=== PATIENT | female | born 1960 | race Caucasian/White ===

== ENCOUNTER 2019-01-30 10:24 | Inpatient (IN) ==
[2019-01-30 11:20] LABS: Hematocrit 38.9 % (37.0-47.0); Hemoglobin 12.8 gm/dL (12.5-16.0); Mean Cell Volume 95.3 fl (78-100); Mean Corpuscular Hemoglobin 31.4 pg (27-31); Mean Corpuscular Hgb Conc 32.9 g/dl (32-36); Mean Platelet Volume 10.1 fl (8-12.5); Neutrophil # 5.8 K/mm3 (1.3-6.0); Neutrophil % 68.8 % (42-75.0); Platelet Count 189 K/mm3 (150-450); Red Blood Count 4.08 M/mm3 (4.2-5.4); Red Cell Distribution Width 14.2 % (11.5-14.0); White Blood Count 8.4 K/mm3 (4.0-10.5)
--- NOTE | 2019-01-30 11:23 | ERNOTE ---
Lower Extremity HPI - General Lower Extremities Pain: hip: left Time Seen by Provider: 01/30/19 10:57 Source: patient Exam Limitations: no limitations - Immun/Allergies/Home Medications Immunizations: IMMUNIZATION HX Immunizations Up to Date Yes Allergies/Adverse Reactions: Allergies Allergy/AdvReac Type Severity Reaction Status Date / Time erythromycin base Allergy Anaphylaxis Verified 01/30/19 10:35 prochlorperazine Allergy Muscle Pain Verified 01/30/19 10:35 [From Compazine] Sulfa (Sulfonamide AdvReac Hives Verified 01/30/19 10:35 Antibiotics) Home Medications: HOME MEDICATIONS Fexofenadine HCl [Kylah Allergy] 180 mg PO DAILY 01/30/19 [Last Taken Unknown] clonazePAM [Klonopin] 0.5 mg PO BID PRN 01/30/19 [Last Taken Unknown] - History of Present Illness Narrative: Patient states that she has been having very slowly progressive numbness in both her hands and her feet over the past year or so. She went to get up from a chair and she states her left leg sort of gave out and she landed on her left hip. Knock patient complains of at least moderate pain in the left hip region. She was able to ambulate in however she was using a walker. Occurred: other - 2 days ago Location of Incident: home Method of Injury: Reports: direct blow Reason for Fall: Reports: other - Lower extremity numbness Loss of Consciousness: Reports: no loss of consciousness Modifying Factors - (Improves): Reports: rest Modifying Factors - (Worsens): Reports: movement Other Injuries: Reports: none Review of Systems - Review of Systems Constitutional: Present: See HPI EYE: Present: no symptoms reported ENT: Present: no symptoms reported Respiratory: Present: no symptoms reported Cardiology: Present: no symptoms reported Gastrointestinal/Abdominal: Present: no symptoms reported Genitourinary: Present: no symptoms reported Musculoskeletal: Present: See HPI Skin: Present: no symptoms reported Neurological: Present: See HPI Endocrine: Present: no symptoms reported Hematologic/Lymphatic: Present: no symptoms reported Psych: Present: no symptoms reported Medical History (Updated 01/30/19 @ 11:54 by Devyn Howell DO) Allergic arthritis Asthma Osteoporosis Surgical History: Surgical History (Updated 01/30/19 @ 10:38 by Ani Monroe RN) History of nasal surgery Social History: (Last Updated 01/30/19 @ 10:36 by Ani Monroe RN) Tobacco: Smoking Status: Current every day smoker tobacco type: cigarettes Smoking cigarettes per day: 3 Alcohol: alcohol intake: current Alcohol type: wine alcohol intake frequency: a few times a week Substance Use: substance use type: does not use Physical Exam - Physical Exam General Appearance: Present: wd/wn, alert, moderate distress Head Exam: Present: normal inspection, no evidence of injury Eye Exam: Normal inspection: bilateral, PERRL: bilateral Ears, Nose, Throat: Present: normal ENT inspection, H, normal pharynx Neck: Present: normal inspection, nontender Respiratory: Present: no respiratory distress, normal breath sounds, no accessory muscle use, chest nontender, lungs clear Cardiovascular/Chest: Present: regular rate, rhythm, no murmur, normal peripheral pulses Gastrointestinal/Abdominal: Present: normal bowel sounds, nontender, nondistended, soft, no organomegaly Rectal Exam: Present: deferred Pelvic Exam: Present: deferred Back Exam: Present: normal inspection, normal range of motion Extremity Exam: Present: no edema, decreased range of motion, other - Palpable tenderness over the left hip area Neurological Exam: Present: alert, oriented, normal mood/affect, other - Both hands and feet paresthesia Skin Exam: Present: normal color, warm/dry Lymphatic Exam: Present: no adenopathy Progress - Results and Orders Patient's Lab Results:: I have reviewed the patient's lab results. - Vital Signs Patient's Vital Signs:: I have reviewed the patient's vital signs. Vital Signs: Vital Signs 01/30/19 10:29 Temperature 36.5 C Pulse Rate 98 Respiratory Rate 14 Blood Pressure 140/88 H O2 Sat by Pulse Oximetry 100 - X-Ray X-Ray #1 X-Ray: hip Interpretation: Reviewed by me - Progress/Reassessment Chief Complaint: Hip Pain/Injury Plan - Plan Plan: Patient has a left subcapital fracture of the hip and will be admitted to the hospitalist with an orthopedic referral. Departure Clinical Impression: Paresthesia of both feet Closed left hip fracture Qualifiers: Encounter type: initial encounter Qualified Code(s): S72.002A - Fracture of unspecified part of neck of left femur, initial encounter for closed fracture - Departure Disposition: Still a patient Condition: Fair
[2019-01-30 11:39] LABS: Prothrombin Time (Patient) 9.7 Seconds (9.1-10.7)
[2019-01-30 11:40] LABS: INR 0.98 INR (0.92-1.08); Partial Thrombolplastin Time 26.4 Seconds (24-32)
[2019-01-30] MEDS ORDERED: ONDANSETRON HCL/PF 2 MG/ML VIAL IV ONE (11:49)
[2019-01-30] MEDS ORDERED: MORPHINE SULFATE 4 MG/ML SYRG IV ONE (11:49)
[2019-01-30 11:56] LABS: ALT 20 U/L (19-67); AST 23 U/L (0-48); Albumin * 3.4 gm/dl (3.4-5.0); Alkaline Phosphatase * 72 U/L (50-170); Anion Gap 11.4 mmol/L (6.8-13.8); BUN/Creatinine Ratio 15.8 (9.0-21.6); Bilirubin, Total 0.7 mg/dL (0.0-1.1); Blood Urea Nitrogen 12 mg/dL (3-23); CRP 5.3 mg/dL (0.0-0.9); Calcium * 8.8 mg/dL (7.9-10.9); Carbon Dioxide 29.1 mmol/L (24-32.6); Chloride 102 mmol/L (97-106); Glucose * 109 mg/dL (70-110); Potassium 3.5 mmol/L (3.4-4.6); Sodium 139 mmol/L (132-142); Total Protein 6.9 gm/dL (6.2-8.2)
[2019-01-30] MEDS ORDERED: ONDANSETRON HCL/PF 2 MG/ML VIAL ONE (11:58)
[2019-01-30] MEDS ORDERED: MORPHINE SULFATE 4 MG/ML SYRG ONE (11:59)
[2019-01-30] MEDS: MORPHINE SULFATE 2 MG/ML DISP.SYRIN IV PRN ×4 (14:21→23:14)
--- NOTE | 2019-01-30 15:58 | CONS ---
[facility] - General Date of Service: 01/30/19 Narrative: 58-year-old female presented to the ER after attempting to get up and feeling as though her left leg gave out and falling on her hip. Patient had immediate pain and was brought to the ER. Patient notes her pain is worse with movement better with rest. Patient notes she is unable to weight-bear. Patient does note she has a history of osteoporosis. Patient notes no other acute symptoms currently. Source: patient, family Exam Limitations: no limitations - History of Present Illness Allergies/Adverse Reactions: Allergies erythromycin base Allergy (Verified 01/30/19 10:35) Anaphylaxis prochlorperazine [From Compazine] Allergy (Verified 01/30/19 10:35) Muscle Pain Sulfa (Sulfonamide Antibiotics) Adverse Reaction (Verified 01/30/19 10:35) Hives Home Medications: Home Medications Medication Instructions Recorded Last Taken Fexofenadine HCl [Kylah Allergy] 180 mg PO DAILY 01/30/19 Unknown Omeprazole 20 mg PO DAILY 01/30/19 Unknown Potassium Chloride [K-Dur] 20 meq PO BID PRN 01/30/19 Unknown clonazePAM [Klonopin] 0.5 mg PO BID PRN 01/30/19 Unknown traMADol HCL [Ultram] 50 mg PO Q6H PRN 01/30/19 Unknown Medications - Medications Current Medications: Current Medications Morphine Sulfate (Morphine Sulfate) 2 mg IV Q1H PRN PRN Reason: Pain Stop: 03/01/19 14:06 Last Admin: 01/30/19 14:21 Dose: 2 mg Documented by: Physical Examination - Exam Vital Signs: Vital Signs - Last Taken Temp 36.7 C 01/30/19 15:13 Pulse 73 01/30/19 15:13 Resp 18 01/30/19 15:13 BP 127/71 01/30/19 15:13 Pulse Ox 96 01/30/19 15:13 O2 Oxygen Delivery Method Room Air Constitutional: Present: Alert, Cooperative, Mild distress Respiratory: Present: no respiratory distress Extremity: Present: other - Left lower extremity--> distal capillary refill brisk, sensation intact light touch, diffuse tenderness about left hip, 5/5 plantar flexion dorsiflexion of ankle, no obvious wounds, mild external rotation of left lower extremity Thoughts: Present: normal thought pattern - Results and Findings: Lab/Microbiology results last 24 hrs: Abnormal/Pending Laboratory Last 24 HRS 01/30/19 01/30/19 01/30/19 11:07 11:07 11:07 RBC 4.08 L MCH 31.4 H RDW 14.2 H Lymphocytes % 17.7 L Eosinophils % 4.6 H Lymphocytes # 1.49 L ESR 26 H C-Reactive Prot, Quant 5.3 H Vitamin B12 Greater than 2000 H - Assessments/Findings (1) Closed left hip fracture Problem: Acute Qualifiers: Encounter type: initial encounter Qualified Code(s): S72.002A - Fracture of unspecified part of neck of left femur, initial encounter for closed fracture Plan - Plan Plan: -58 y/o female admitted status post a fall for left proximal femur fracture -Discussed with patient the risk first benefits including but not limited to conservative and surgical intervention. These included DVT, infection, bleeding, malunion versus nonunion fracture healing, cardiac and stroke risk, continued pain, and other inherent surgical risk. Patient wishes to proceed with surgical intervention. A CT was obtained this revealed significant impaction of the femoral neck. After discussion with Dr. Whalen decision was made to proceed with a left total hip arthroplasty. Consent will be obtained prior to surgical intervention on 01/31/2019. Patient will need to be evaluated by the medical team prior to proceeding with surgical intervention. We will wait to interpret there recommendations. -N.p.o. at midnight -Pain medication PRN -Nonweightbearing
[2019-01-30] MEDS ORDERED: clonazePAM 0.5 MG TABLET PO PRN (18:00)
[2019-01-30] MEDS ORDERED: POTASSIUM CHLORIDE 20 MEQ TABLET.SA PO PRN (18:00)
[2019-01-30] MEDS ORDERED: traMADol HCL 50 MG TABLET PO PRN (18:00)
--- NOTE | 2019-01-30 18:01 | HP ---
Chief Complaint - Chief Complaint Date of Service: 01/30/19 Time of Service: 22:35 Chief Complaint: left proximal femur fx History of Present Illness: Very pleasant 58-year-old female presented to the ER today following 2 days of left hip pain after a ground-level fall. Patient states that she does not recall tripping over anything but feels like her legs gave out on her and afterwards had pain in her hip. Patient ambulated the last 48 hours with the help of a walker that her had after his hip surgeries. Patient does endorse some numbness in her bilateral feet but this is unchanged following the injury. In the ER patient had a CT scan scan done of her left hip which showed compacted proximal femur fracture, Ortho was consulted. Plan is for left total hip arthroplasty tomorrow morning with Dr. Whalen. Patient was admitted to the floor under inpatient. Her vital signs have been stable and she been afebrile. Patient only concern now is mild pain which is been controlled with the morphine that has been ordered for as well as some nausea likely from the morphine. Medical History (Updated 01/30/19 @ 11:57 by Devyn Howell DO) Allergic arthritis Asthma Osteoporosis Surgical History: Surgical History (Updated 01/30/19 @ 15:57 by Jessica Greenwood RN) H/O: hysterectomy History of nasal surgery Family History: Family History (Last Updated 01/30/19 @ 15:59 by Jesisca Greenwood RN) Father Lung cancer Mother Dialysis patient Brother Diabetes Grandmother Leukemia Social History: (Last Updated 01/30/19 @ 10:36 by Ani Monroe RN) Tobacco: Smoking Status: Current every day smoker tobacco type: cigarettes Smoking cigarettes per day: 3 Alcohol: alcohol intake: current Alcohol type: wine alcohol intake frequency: a few times a week Substance Use: substance use type: does not use Review Of Systems (GEN) - Review of Systems Generalized/Overall Review: Absent: Weakness, Chills, Fever EENTM: Present: No Symptoms Reported Respiratory: Present: No Symptoms Reported Cardiac: Present: No Symptoms Reported Abdominal: Present: No Symptoms Reported Genitourinary: Present: No Symptoms Reported Musculoskeletal: Present: Joint Pain. Absent: Back Pain, Joint Swelling Neurological: Present: Numbness - bilateral feet Skin: Present: No Symptoms Reported Endocrine: Present: No Symptoms Reported Immunizations: IMMUNIZATION HX Immunizations Up to Date Yes Allergies/Adverse Reactions: Allergies Allergy/AdvReac Type Severity Reaction Status Date / Time erythromycin base Allergy Anaphylaxis Verified 01/30/19 10:35 prochlorperazine Allergy Muscle Pain Verified 01/30/19 10:35 [From Compazine] Sulfa (Sulfonamide AdvReac Hives Verified 01/30/19 10:35 Antibiotics) Home Medications: HOME MEDICATIONS Fexofenadine HCl [Kylah Allergy] 180 mg PO DAILY 01/30/19 [Last Taken Unknown] Omeprazole 20 mg PO DAILY 01/30/19 [Last Taken Unknown] Potassium Chloride [K-Dur] 20 meq PO BID PRN 01/30/19 [Last Taken Unknown] clonazePAM [Klonopin] 0.5 mg PO BID PRN 01/30/19 [Last Taken Unknown] traMADol HCL [Ultram] 50 mg PO Q6H PRN 01/30/19 [Last Taken Unknown] Exam - Exam Vital Signs: Vital Signs - Last Taken Temp 36.7 C 01/30/19 15:13 Pulse 73 01/30/19 15:13 Resp 18 01/30/19 15:13 BP 127/71 01/30/19 15:13 Pulse Ox 96 01/30/19 15:13 Constitutional: Present: Alert, Oriented x3, Cooperative, Mild distress ENT Exam: Present: hearing grossly normal. Absent: nasal congestion, nasal drainage, pharyngeal erythema Eye Exam: bilateral eye: normal inspection, PERRL, EOMI Neck: Present: non-tender, supple Back Exam: Present: normal inspection, no CVA tenderness Breasts: Present: Exam deferred Respiratory: Present: lungs clear, normal breath sounds Cardiovascular/Chest: Present: regular rate, rhythm, no murmur Peripheral Pulses: dorsalis-pedis (R): 2+, dorsalis-pedis (L): 2+ Abdomen: Present: Normal bowel sounds, soft, nontender, nondistended /Rectal: Present: Exam deferred Extremity: Present: normal capillary refill - left lower extremity Skin Exam: Present: normal color, warm/dry Neurologic: Present: no motor/sensory deficits, alert, normal mood/affect, oriented x 3 Appearance: Present: appropriate appearance, appropriate insight Eye contact: Present: cooperative, good eye contact Thoughts: Present: normal thought pattern, normal mood /affect Diagnostic Studies: Abnormal Lab Results 01/30/19 01/30/19 01/30/19 Range/Units 11:07 11:07 11:07 RBC 4.08 L (4.2-5.4) M/mm3 MCH 31.4 H (27-31) pg RDW 14.2 H (11.5-14.0) % Lymphocytes % 17.7 L (20-51) % Eosinophils % 4.6 H (0.0-3.0) % Lymphocytes # 1.49 L (1.5-3.5) k/mm3 ESR 26 H (0-15) mm/hr C-Reactive Prot, Quant 5.3 H (0.0-0.9) mg/dL Vitamin B12 Greater than 2000 H (193-986) pg/mL Laboratory Results WBC 8.4 K/mm3 (4.0-10.5) 01/30/19 11:07 RBC 4.08 M/mm3 (4.2-5.4) L 01/30/19 11:07 Hgb 12.8 gm/dL (12.5-16.0) 01/30/19 11:07 Hct 38.9 % (37.0-47.0) 01/30/19 11:07 MCV 95.3 fl (78-100) 01/30/19 11:07 MCH 31.4 pg (27-31) H 01/30/19 11:07 MCHC 32.9 g/dl (32-36) 01/30/19 11:07 RDW 14.2 % (11.5-14.0) H 01/30/19 11:07 Plt Count 189 K/mm3 (150-450) 01/30/19 11:07 MPV 10.1 fl (8-12.5) 01/30/19 11:07 Immature Gran % (Auto) 0.20 % (0.001-0.429) 01/30/19 11:07 Immature Gran # (Auto) 0.02 K/mm3 (0.000-0.0310) 01/30/19 11:07 68.8 % (42-75.0) 01/30/19 11:07 17.7 % (20-51) L 01/30/19 11:07 8.2 % (0.0-9) 01/30/19 11:07 4.6 % (0.0-3.0) H 01/30/19 11:07 0.5 % (0.0-1.0) 01/30/19 11:07 Nucleated RBC % 0.0 k/mm3 (0-1) 01/30/19 11:07 5.8 K/mm3 (1.3-6.0) 01/30/19 11:07 1.49 k/mm3 (1.5-3.5) L 01/30/19 11:07 0.7 k/mm3 (0.0-1.0) 01/30/19 11:07 0.4 k/mm3 (0.0-0.7) 01/30/19 11:07 Absolute Basophils 0.0 k/mm3 (0.0-0.1) 01/30/19 11:07 ESR 26 mm/hr (0-15) H 01/30/19 11:07 PT 9.7 Seconds (9.1-10.7) 01/30/19 11:08 INR (Anticoag Therapy) 0.98 INR (0.92-1.08) 01/30/19 11:08 PTT (Clarissa) 26.4 Seconds (24-32) 01/30/19 11:08 Sodium 139 mmol/L (132-142) 01/30/19 11:07 139 mmol/L (130-142) 01/30/19 11:07 Potassium 3.5 mmol/L (3.4-4.6) 01/30/19 11:07 Chloride 102 mmol/L (97-106) 01/30/19 11:07 Carbon Dioxide 29.1 mmol/L (24-32.6) 01/30/19 11:07 11.4 mmol/L (6.8-13.8) 01/30/19 11:07 BUN 12 mg/dL (3-23) 01/30/19 11:07 0.76 mg/dL (0.4-1.4) 01/30/19 11:07 Est GFR (Non-Af Amer) 83 mL/min (60-130) 01/30/19 11:07 15.8 (9.0-21.6) 01/30/19 11:07 109 mg/dL (70-110) 01/30/19 11:07 Calcium 8.8 mg/dL (7.9-10.9) 01/30/19 11:07 Calcium Adj for Albumin 9.0 mg/dL (8.4-10.2) 01/30/19 11:07 0.7 mg/dL (0.0-1.1) 01/30/19 11:07 AST 23 U/L (0-48) 01/30/19 11:07 ALT 20 U/L (19-67) 01/30/19 11:07 72 U/L (50-170) 01/30/19 11:07 C-Reactive Prot, Quant 5.3 mg/dL (0.0-0.9) H 01/30/19 11:07 6.9 gm/dL (6.2-8.2) 01/30/19 11:07 3.4 gm/dl (3.4-5.0) 01/30/19 11:07 Vitamin B12 Greater than 2000 pg/mL (193-986) H 01/30/19 11:07 Blood Type A Positive 01/30/19 11:44 Antibody Screen Negative 01/30/19 11:44 Assessment/Plan - Narrative Narrative: 58-year-old female with closed left proximal femur fracture admitted under inpatient for left total hip arthroplasty to be performed by Dr. Whalen tomorrow morning. Patient has minimal risk factors and should do well with the surgery. She is cleared from a medical standpoint for surgery. Patient currently n.p.o. at midnight, will add some as needed Phenergan to be given prior to for some nausea that she is having from the morphine but otherwise her pain is well controlled. Her vital signs are stable and she is afebrile. We will follow-up with her tomorrow. Nurse will call with any questions or concerns regarding her health. SCD to be worn on noninjured leg for DVT prophylaxis prior to surgery. - Assessment/Plan (1) Closed left hip fracture Problem: Acute Qualifiers: Encounter type: initial encounter Qualified Code(s): S72.002A - Fracture of unspecified part of neck of left femur, initial encounter for closed fracture (2) Paresthesia of both feet Problem: Acute (3) Tobacco abuse Problem: Acute
[2019-01-30] MEDS ORDERED: PROMETHAZINE HCL 25 MG TABLET PO ONE (22:45)
[2019-01-31] MEDS ORDERED: NORMAL SALINE 1,000 ML IV PRN ×2 (00:08→10:46)
[2019-01-31] MEDS: MORPHINE SULFATE 2 MG/ML DISP.SYRIN IV PRN ×4 (00:39→06:46)
[2019-01-31] MEDS ORDERED: ceFAZolin SODIUM 1 GM VIAL IV PRN (06:00)
[2019-01-31] MEDS: RINGER'S SOLUTION,LACTATED 1,000 ML IV PRN ×3 (06:41→10:30)
--- NOTE | 2019-01-31 07:16 | ANES ---
Anesthesia Pre Procedure Eval Vitals/Labs: Last Vital Signs Temp 37.4 C 01/31/19 06:37 Pulse 82 01/31/19 06:37 Resp 12 01/31/19 06:37 BP 139/77 01/31/19 06:37 Pulse Ox 98 01/31/19 06:37 HOME MEDICATIONS Fexofenadine HCl [Kylah Allergy] 180 mg PO DAILY 01/30/19 [Last Taken Unknown] Omeprazole 20 mg PO DAILY 01/30/19 [Last Taken Unknown] Potassium Chloride [K-Dur] 20 meq PO BID PRN 01/30/19 [Last Taken Unknown] clonazePAM [Klonopin] 0.5 mg PO BID PRN 01/30/19 [Last Taken Unknown] traMADol HCL [Ultram] 50 mg PO Q6H PRN 01/30/19 [Last Taken Unknown] Allergies/Adverse Reactions: Allergies Allergy/AdvReac Type Severity Reaction Status Date / Time erythromycin base Allergy Anaphylaxis Verified 01/30/19 10:35 prochlorperazine Allergy Muscle Pain Verified 01/30/19 10:35 [From Compazine] Sulfa (Sulfonamide AdvReac Hives Verified 01/30/19 10:35 Antibiotics) - Planned Procedure Planned Procedure: HIP FX LEFT SIDE Medication List Reviewed:: Yes Allergies Verified: Yes Medical History (Updated 01/30/19 @ 22:43 by Michael Moyer DO) Allergic arthritis Asthma Osteoporosis Surgical History (Updated 01/30/19 @ 15:57 by Jessica Greenwood RN) H/O: hysterectomy History of nasal surgery Family History (Last Reviewed 01/31/19 @ 07:16 by Devyn Strickland CRNA) Father Lung cancer Mother Dialysis patient Brother Diabetes Grandmother Leukemia - Family Anesthesia History Family History:: no untoward family reactions to anesthesia - Airway/Neck/Teeth Within Normal Limits:: Yes Teeth Condition: intact Neck Exam: full range of motion Mallampatti Score: 1 Thyromental (T-M) distance: > 6 cm Mandibulo Hyoid distance: > 3 cm - Respiratory Respiratory Physical: lungs clear Smoking Status: Current every day smoker Discussed smoking cessation including day of surgery: Yes Sleep Apnea currently treated: No Sleep Apnea by current assessment: No - Cardiovascular Tolerate Activity: Good Heart Sounds: S1 & S2, Regular - Anesthesia Assessment and Plan ASA Class: PS, II Anesthesia Type Plan: Spinal Planned difficult intubation/equipment available: No
--- NOTE | 2019-01-31 08:24 | PN ---
Subjective - Date and Time Seen Date: 01/31/19 Time: 07:30 Subjective Narrative: 58-year-old female admitted for a left proximal femur fracture. Patient notes no acute events overnight. She notes her pain has been well controlled. Patient states she is ready to proceed with surgical intervention. Patient states she has no significant questions concerning the treatment process. Patient notes her pain is worse with movement better with rest. Objective - Vitals Vitals: Last Vital Signs Temp 37.4 C 01/31/19 07:22 Pulse 82 01/31/19 07:22 Resp 12 01/31/19 07:22 BP 139/77 01/31/19 07:22 Pulse Ox 98 01/31/19 07:22 - Abnormal Lab Findings Abnormal Lab Findings: Abnormal Lab Results 01/30/19 01/30/19 01/30/19 Range/Units 11:07 11:07 11:07 RBC 4.08 L (4.2-5.4) M/mm3 MCH 31.4 H (27-31) pg RDW 14.2 H (11.5-14.0) % Lymphocytes % 17.7 L (20-51) % Eosinophils % 4.6 H (0.0-3.0) % Lymphocytes # 1.49 L (1.5-3.5) k/mm3 ESR 26 H (0-15) mm/hr C-Reactive Prot, Quant 5.3 H (0.0-0.9) mg/dL Vitamin B12 Greater than 2000 H (193-986) pg/mL - Exam Constitutional: Present: Alert, Cooperative, No distress Respiratory: Present: no respiratory distress Extremity: Present: other - LLE--> station intact light touch, distal capillary refill brisk, diffuse tenderness about left hip Eye contact: Present: cooperative Thoughts: Present: normal thought pattern Cauti Physician Documentation - Urinary Catheter Management Urethral ([place]) Date of Insertion: 01/30/19 Time of Insertion: 12:47 Assessment/Plan Plan Narrative: -58-year-old female status post fall with left proximal femur fracture -Consent was obtained, all questions were answered. Patient will proceed with surgical intervention on 01/31/2019. Patient will undergo a left total hip arthroplasty. Have reviewed the risks and benefits of the procedure and alternative treatment options. Patient will be monitored postoperatively in the hospital for complications, pain control, physical therapy. - Problems/Diagnosis (1) Closed left hip fracture Problem: Acute Qualifiers: Encounter type: initial encounter Qualified Code(s): S72.002A - Fracture of unspecified part of neck of left femur, initial encounter for closed fracture
[2019-01-31] MEDS ORDERED: TRANEXAMIC ACID 1,000 MG in NORMAL SALINE 100 ML IV PRN (09:27)
[2019-01-31] MEDS ORDERED: ROPIVACAINE HCL/PF 100 MG, EPINEPHrine 0.2 MG, KETOROLAC TROMETHAMINE 30 MG in NORMAL S... IJ PRN (09:27)
[2019-01-31] MEDS ORDERED: VANCOMYCIN HCL 1 GM VIAL TP ONE (09:30)
[2019-01-31] MEDS ORDERED: HYDROcodone/ACETAMINOPHEN 1 EACH TABLET PO PRN (10:46)
[2019-01-31] MEDS ORDERED: MAG HYDROX/ALUMINUM HYD/SIMETH 30 ML UDC PO PRN (10:46)
[2019-01-31] MEDS ORDERED: ONDANSETRON HCL/PF 2 MG/ML VIAL IV PRN (10:46)
[2019-01-31] MEDS ORDERED: MORPHINE SULFATE 2 MG/ML DISP.SYRIN IV PRN (10:46)
[2019-01-31] MEDS ORDERED: MAGNESIUM HYDROXIDE 30 ML UDC PO PRN (10:46)
[2019-01-31] MEDS ORDERED: ACETAMINOPHEN 500 MG TABLET PO PRN (10:46)
--- NOTE | 2019-01-31 11:00 | OR ---
Operative Report - Dictated Report Narrative: Date: 01/31/2019 Surgeon: Les Whalen M.D. [employer]: Zheng Davila PA-C provided a set of essential, skilled, educated hands that assisted in positioning, transfer, retraction, manipulation, irrigation, closure of wounds, and placement of dressings all of which could not be provided by the available surgical crew. Preoperative diagnosis: Left displaced subcapital femoral neck fracture Postoperative diagnosis: Left displaced subcapital femoral neck fracture Procedure: Left uncemented total hip arthroplasty Anesthesia: Spinal and local periarticular joint injection. Complications: None Specimens: Bone for disposal. Estimated blood loss: 250 milliliters. Retained implants: Depuy Corail size 13 femoral stem standard offset. Size 52 millimeter ouside diameter 3-hole [place] Gription acetabular cup. 52 millimeter outside by 36 millimeter inside diameter highly cross-linked acetabular liner. 36 millimeter diameter + 12 millimeter cobalt chromium femoral head. Cancellous 6.5mm screw 30 millimeter length Indications: Joyce is a 58-year-old active female who fell from standing height resulting in a displaced left subcapital femoral neck fracture. She was initially seen in the emergency department with plain films revealing the injury. She was then admitted to the hospital under the family medicine service. I counseled the patient on treatment options and recommended total hip arthroplasty based on the displacement of the fracture in the patient's health and activity level. Patient wished to proceed with surgical treatment. The risks, benefits, and alternatives were discussed including, but not limited to, bleeding, infection, nerve/tendon blood vessel/ injury, malposition of components, dislocation and/or instability of joint, intraoperative fracture, postoperative limited range of motion, persistent pain, failure of components, and need for additional procedures. Patient wished to proceed. Consent was obtained after answering all questions. Procedure: After marking the correct extremity on the floor, the patient was taken to the operating room. A timeout was performed. IV antibiotics consisting of 1 g of Ancef were administered prior to the procedure. A spinal anesthetic was induced by anesthesia. A Spaulding catheter was inserted. The patient was then transitioned to a lateral position on a well-padded pegboard. And an axillary roll was placed. The head was in neutral position. The non- operative down leg was well-padded with SCD and NAVEED hose in place. The arms were supported and padded to protect from any undue pressure on the bony prominences and nerves. Well-padded anterior and posterior pelvic and chest posts were secured in order to maintain a stable position of the pelvis. This was placed so that the pelvis was perpendicular to the floor. The body was in line with the pelvis. Once it was felt that we had protected all the bony prominences and the patient was well secured with a safety belt as well, the leg was pre-scrubbed with alcohol, prepped and draped in a standard sterile fashion. A standard anterior lateral hip incision was marked out over the greater trochanter. Ioban drapes were then placed. The skin incision was then made. Sharp dissection with a scalpel utilizing cautery for hemostasis was carried out down to the gluteus and iliotibial band fascia. This was split in line with the skin incision. The greater trochanter bursa was excised. The anterior and posterior margins of the abductor tendon were identified. The anterior 1/3 of the tendon was tagged and reflected off the greater trochanter leaving a sleeve of tendon for repair at the completion of the case. This exposed the underlying hip joint capsule. A limb length stitch was placed in the skin and referenced off a kayden on the greater trochanter for evaluation of intraoperative limb lengths. An inverted T-type capsulotomy was made extending this up to the brim of the acetabulum and fracture hematoma was immediately encountered. Using Homans to assist with elevation of the soft tissues off the anterior, superior, and inferior aspects of the femoral neck, the hip was then placed in a figure 4 position and the fractured portion of the femoral neck was brought up out of the wound. With the leg in an externally rotated and adducted position, the cutting flag was utilized in order to kayden for a standard femoral neck cut approximately a fingerbreadth above the level of the lesser trochanter. This was done while protecting the surrounding soft tissues with Homans. The femoral head was then removed with a corkscrew and sized for guidance on preparation of the acetabulum. It was noted that there was mild loss of articular cartilage on both the femoral head and weightbearing portions of the acetabulum. We then returned the leg to the table and turned our attention to the acetabulum. While protecting the surrounding soft tissues, the labrum and remaining tissue in the fovea were excised using a scalpel and cautery. A series of reamers up to size 51 millimeter were utilized to prepare the acetabulum. The final reamer had good purchase and exposed bleeding subchondral bone. The acetabulum was then thoroughly irrigated ensuring that all bony and cartilaginous materials were removed and the final acetabular shell was impacted into place. This was placed in approximately 45 degrees of abduction and 20 degrees of anteversion utilizing the outrigger and body axis for alignment. This had a good press fit. One 6.5 x 30mm cancellous screw was placed in the posterior superior quadrant of the acetabulum. The shell was then thoroughly irrigated and the final polyethylene was impacted into place ensuring that it seated completely. This was then protected with a sponge while we returned our attention to the femur. With the leg in a figure 4 position utilizing Homans for soft tissue protection, a box cutting osteotome, followed by Charnley awl, followed by a lateralizing reamer and broaches were utilized in order to prepare the femur. It was found that a size 13 broach gave good axial and rotational stability. The calcar reamer was utilized in order to clean up the cut edges. The proximal femur was visualized to ensure that there were no signs of fracture. A series of heads and necks were trialed. It was found that a standard neck and a +12mm femoral head gave good overall stability. There was minimal longitudinal instability. With the leg in the position of sleep the femoral head was well covered. Hip range of motion was able to reach full extension and external rotation to greater than 75 degrees prior to impingement along the posterior acetabulum. The hip was able to be flexed to greater than 90 degrees with internal rotation greater than 60 degrees prior to anterior impingement. The limb lengths were near equal based on comparison to the contralateral side in the prior placed limb length stitch. At this point was felt this was the appropriately sized femoral components as well as neck and femoral head. The trial implants were removed. The femur was thoroughly irrigated. The final implants were impacted in the place and the hip was reduced. After ensuring that there was no damage to the proximal femur, the standard periarticular joint injection of ropivacaine, Toradol, and epinephrine were injected into the joint capsule and surrounding soft tissues. The capsule was repaired with interrupted #1 Vicryl. The abductor tendon was repaired to the greater trochanter and residual cuff of tendon utilizing #5 Ethibond. This was oversewn with #1 Vicryl. The fascia was closed with running #1 Stratafix suture. The wounds were thoroughly irrigated as we closed in layers. The deep fat layers were closed with running 0 Stratafix suture. The subcutaneous tissue was closed with interrupted 3-0 Vicryl and the skin with a running subcuticular 4-0 monocryl and Prineo dressing. All sponge, needle, blade, and instrument counts were correct prior to closing the wounds. Sterile dressings consisting of 4 x 4's, ABD, and tape were applied. The patient was awoken and transferred to her hospital bed and then to the postanesthesia care unit in stable condition. Postoperative condition: The plan is to admit to the medical/surgical inpatient floor postoperatively. There will be a projected 2 to 4 day hospital stay. Postoperatively 24 hours of IV antibiotics, pain control, physical therapy, occupational therapy, and medical comanagement will be utilized. Patient will be weightbearing as tolerated with anterior hip precautions. Postoperative films will be obtained in the recovery room.
--- NOTE | 2019-01-31 11:39 | ANES ---
Post Anesthesia Discharge - Transfer of Care Transfer of Care handoff given to nurse: Yes - Discharge from PACU Discharge from PACU when meets criteria: Yes - Anesthesia Post Op Note Anesthesia Post Op Note: pt complaining of chest pain in PACU. 12 lead EKG and troponin level ordered
--- NOTE | 2019-01-31 11:42 | ANES ---
Post Anesthesia Assessment - Vital Signs Vitals: Last Vital Signs Temp 36.9 C 01/31/19 11:05 Pulse 80 01/31/19 11:35 Resp 16 01/31/19 11:35 BP 130/76 01/31/19 11:35 Pulse Ox 98 01/31/19 11:35 Airway Patency: Normal - Mental Status Level Of Consciousness: Awake - Pain Level Pain Score: 7 - N/V Assessment Nausea/Vomiting Presence: Nauseated Dehydration:: No - Additional Notes Comments:: Pt complaints of chest pain on rt side, subsiding. nausea being treated
[2019-01-31] MEDS: HYDROcodone/ACETAMINOPHEN 1 EACH TABLET PO PRN ×2 (13:20→17:33)
[2019-01-31] MEDS: PANTOPRAZOLE SODIUM 20 MG TABLET.DR PO SCH (13:53)
[2019-01-31] MEDS: LORATADINE 10 MG TABLET PO SCH (13:53)
[2019-01-31] MEDS: ceFAZolin SODIUM 1 GM in DEXTROSE 5 % IN WATER 100 ML IV SCH ×4 (15:20→15:22)
[2019-01-31] MEDS ORDERED: SENNOSIDES/DOCUSATE SODIUM 1 TAB TABLET PO SCH (21:00)
--- NOTE | 2019-01-31 21:46 | PN ---
Subjective - Date and Time Seen Date: 01/31/19 Time: 21:46 Subjective Narrative: No acute events overnight, patient was taken back for surgery this morning which she did well with. No complications during the surgery. On the PACU patient had short stent of right-sided chest pain which was likely due to positioning more than cardiac in nature. EKG and troponin both were unremarkable. When examined patient was sitting comfortably in her room, pain was well controlled. Her vital signs been stable and she is been afebrile. She had no questions or concerns at that time. Objective - Review of Systems Generalized/Overall Review: Denies: Weakness, Chills, Fever EENTM: Reports: No Symptoms Reported Respiratory: Denies: Cough, Shortness of Breath Cardiac: Denies: Chest Pain, Palpitations Abdominal: Denies: Nausea, Vomiting, Abdominal Pain Genitourinary Symptoms: Reports: No Symptoms Reported Musculoskeletal Complaints: Reports: Joint Pain, Muscle Pain Neurological: Reports: No Symptoms Reported Endocrine: Reports: No Symptoms Reported - Vitals Vitals: Last Vital Signs Temp 36.9 C 01/31/19 17:53 Pulse 95 01/31/19 17:53 Resp 16 01/31/19 17:53 BP 115/64 01/31/19 17:53 Pulse Ox 93 01/31/19 17:53 - Exam Constitutional: Present: Alert, Oriented x3, Cooperative, Well developed, Well n ourished ENT Exam: Present: hearing grossly normal Neck: Present: non-tender, supple Breasts: Present: Exam deferred Respiratory: Present: lungs clear, normal breath sounds, no respiratory distress Cardiovascular/Chest: Present: normal peripheral pulses, no murmur, irregularly irregular Abdomen: Present: Normal bowel sounds, soft, nontender /Rectal: Present: Exam deferred Extremity: Present: normal capillary refill, leg pain Skin Exam: Present: normal color, warm/dry Neurologic: Present: no motor/sensory deficits Appearance: Present: appropriate appearance, appropriate insight Eye contact: Present: cooperative, good eye contact Thoughts: Present: normal thought pattern, normal mood /affect Cauti Physician Documentation - Urinary Catheter Management Urethral ([place]) Date of Insertion: 01/30/19 Time of Insertion: 12:47 Assessment/Plan Plan Narrative: Patient did well following left total hip arthroplasty, pain currently being controlled. Ortho team in charge of managing this. Happy to help out in any way that I can. Medically patient is stable and doing well. No issues with her vital signs, patient is afebrile. Patient currently comfortable. Hemogram ordered for the morning to monitor blood loss. Patient restarted on regular diet. Patient able to resume regular medications now that she is no longer n.p.o. Patient appears to be in good spirits, nurse will call with any questions or concerns. Lovenox for DVT prophylaxis. - Problems/Diagnosis (1) Closed left hip fracture Problem: Acute Qualifiers: Encounter type: initial encounter Qualified Code(s): S72.002A - Fracture of unspecified part of neck of left femur, initial encounter for closed fracture (2) Paresthesia of both feet Problem: Acute (3) Tobacco abuse Problem: Acute
[2019-02-01] MEDS: ceFAZolin SODIUM 1 GM in DEXTROSE 5 % IN WATER 100 ML IV SCH ×4 (00:38→09:06)
[2019-02-01] MEDS: HYDROcodone/ACETAMINOPHEN 1 EACH TABLET PO PRN ×3 (05:16→13:50)
[2019-02-01 05:25] LABS: Hematocrit 33.8 % (37.0-47.0); Hemoglobin 11.2 gm/dL (12.5-16.0); Mean Cell Volume 94.7 fl (78-100); Mean Corpuscular Hemoglobin 31.4 pg (27-31); Mean Corpuscular Hgb Conc 33.1 g/dl (32-36); Mean Platelet Volume 10.7 fl (8-12.5); Platelet Count 182 K/mm3 (150-450); Red Blood Count 3.57 M/mm3 (4.2-5.4); Red Cell Distribution Width 14.1 % (11.5-14.0); White Blood Count 11.3 K/mm3 (4.0-10.5)
[2019-02-01 05:29] LABS: Anion Gap 11.8 mmol/L (6.8-13.8); BUN/Creatinine Ratio 9.5 (9.0-21.6); Calcium * 8.2 mg/dL (7.9-10.9); Estimated Creat Clear 88.8; Potassium 3.8 mmol/L (3.4-4.6)
[2019-02-01] MEDS ORDERED: VANCOMYCIN HCL 1 GM in DEXTROSE 5 % IN WATER 250 ML IV PRN ×2 (06:00)
[2019-02-01] MEDS ORDERED: TRANEXAMIC ACID 1,000 MG in NORMAL SALINE 100 ML IV PRN (06:00)
[2019-02-01] MEDS ORDERED: ROPIVACAINE HCL/PF 100 MG, EPINEPHrine 0.2 MG, KETOROLAC TROMETHAMINE 30 MG in NORMAL S... IJ PRN (06:00)
[2019-02-01] MEDS: PANTOPRAZOLE SODIUM 20 MG TABLET.DR PO SCH (07:04)
--- NOTE | 2019-02-01 07:51 | PN ---
Subjective - Date and Time Seen Date: 02/01/19 Time: 07:25 Subjective Narrative: Patient states no acute events overnight. She notes her pain is well controlled currently. She notes she was able to get up to the chair with physical therapy yesterday. She notes she does have slightly increased pain with weightbearing, better with rest. She notes no other acute symptoms currently. States she wishes to go home and that she has multiple family members that could aid in her care and recovery. Objective - Vitals Vitals: Last Vital Signs Temp 37.5 C 02/01/19 06:35 Pulse 102 H 02/01/19 06:35 Resp 12 02/01/19 06:35 BP 115/62 02/01/19 06:35 Pulse Ox 96 02/01/19 06:35 - Abnormal Lab Findings Abnormal Lab Findings: Abnormal Lab Results 02/01/19 02/01/19 Range/Units 05:05 05:05 WBC 11.3 H D (4.0-10.5) K/mm3 RBC 3.57 L (4.2-5.4) M/mm3 Hgb 11.2 L (12.5-16.0) gm/dL Hct 33.8 L (37.0-47.0) % MCH 31.4 H (27-31) pg RDW 14.1 H (11.5-14.0) % Random Glucose 150 H D (70-110) mg/dL - Exam Constitutional: Present: Alert, Cooperative, No distress Extremity: Present: other - LLE--> bandages clean/dry/intact, sensation intact light touch, 5/5 plantar flexion dorsiflexion ankle, distal capillary refill brisk, diffuse mild tenderness about left hip Eye contact: Present: cooperative Thoughts: Present: normal thought pattern Cauti Physician Documentation - Urinary Catheter Management Urethral ([place]) Date of Insertion: 01/30/19 Time of Insertion: 12:47 Date of Removal: 02/01/19 Time of Removal: 07:09 Assessment/Plan Plan Narrative: -58 y/o female postop day 1 status post left total hip arthroplasty -Weightbearing as tolerated, anterior precautions, assistive device PRN -P.o. diet PRN -P.o. pain medication PRN -Maintain surgical dressings in place until discharge -PT/OT progress as tolerated -Chronic medical conditions per medicine -DVT prophylaxis Lovenox, SCDs in bed, NAVEED melchor -Disposition: Based on goals met with physical therapy could consider discharge home, patient and state they have significant handicap accessibility in their house, they note that they know patient will require assistive devices. We will continue to monitor patient's progress to determine appropriate care moving forward. - Problems/Diagnosis (1) Closed left hip fracture Problem: Acute Qualifiers: Encounter type: initial encounter Qualified Code(s): S72.002A - Fracture of unspecified part of neck of left femur, initial encounter for closed fracture
[2019-02-01] MEDS: LORATADINE 10 MG TABLET PO SCH (09:10)
[2019-02-01] MEDS ORDERED: ENOXAPARIN SODIUM 40 MG/0.4 ML SYRG SC SCH (09:47)
--- NOTE | 2019-02-01 13:48 | DS ---
(1) Closed left hip fracture Problem: Acute Qualifiers: Encounter type: initial encounter Qualified Code(s): S72.002A - Fracture of unspecified part of neck of left femur, initial encounter for closed fracture (2) Paresthesia of both feet Problem: Acute (3) Tobacco abuse Problem: Acute Date of Discharge:: 02/01/19 Description of Stay: 58-year-old female history of tobacco abuse and bilateral paresthesias admitted to the hospital following a ground-level fall that resulted in a left intertrochanteric femur fracture. Patient was taken back by Ortho and had a total left hip arthroplasty performed which she tolerated well without complication. Patient was able to meet all requirements for therapy while here in the hospital and was felt safe to go home. She was discharged in stable condition and will follow-up with me in 1 to 2 weeks. She also will follow-up with Ortho in 2 weeks. She will be sent home on Lovenox for 14 days and then transition over to a full-strength aspirin for an additional 4 weeks. No changes to other chronic medications prior to discharge. While here patient's vitals are stable and she was afebrile. Initial hemoglobin was 12.8 which dropped to 11.2 following surgery. Procedures Performed: see notes below - left total hip arthroplasty Results and Findings: Lab Pending Results 01/30/19 11:07: WBC 8.4, RBC 4.08 L, Hgb 12.8, Hct 38.9, MCV 95.3, MCH 31.4 H, MCHC 32.9, RDW 14.2 H, Plt Count 189, MPV 10.1, Immature Gran % (Auto) 0.20, Immature Gran # (Auto) 0.02, Neutrophils % 68.8, Lymphocytes % 17.7 L, Monocytes % 8.2, Eosinophils % 4.6 H, Basophils % 0.5, Nucleated RBC % 0.0, Neutrophils # 5.8, Lymphocytes # 1.49 L, Monocytes # 0.7, Eosinophils # 0.4, Absolute Basophils 0.0 01/30/19 11:07: ESR 26 H 01/30/19 11:07: Sodium 139, Plasma Sodium 139, Potassium 3.5, Chloride 102, Carbon Dioxide 29.1, Anion Gap 11.4, BUN 12, Creatinine 0.76, Est GFR (Non-Af Amer) 83, BUN/Creatinine Ratio 15.8, Random Glucose 109, Calcium 8.8, Calcium Adj for Albumin 9.0, Total Bilirubin 0.7, AST 23, ALT 20, Alkaline Phosphatase 72, C-Reactive Prot, Quant 5.3 H, Total Protein 6.9, Albumin 3.4, Vitamin B12 Greater than 2000 H 01/30/19 11:08: PT 9.7, INR (Anticoag Therapy) 0.98, PTT ([place]) 26.4 01/30/19 11:44: Blood Type A Positive, Antibody Screen Negative 01/31/19 10:21: Pathology Specimen Spec to path 01/31/19 11:45: Troponin I Less than 0.017 01/31/19 17:50: Troponin I Less than 0.017 02/01/19 05:05: WBC 11.3 H D, RBC 3.57 L, Hgb 11.2 L, Hct 33.8 L, MCV 94.7, MCH 31.4 H, MCHC 33.1, RDW 14.1 H, Plt Count 182, MPV 10.7 02/01/19 05:05: Sodium 138, Plasma Sodium 139, Potassium 3.8, Chloride 103, Carbon Dioxide 27.0, Anion Gap 11.8, BUN 7, Creatinine 0.74, Est GFR (Non-Af Amer) 85, BUN/Creatinine Ratio 9.5, Random Glucose 150 H D, Calcium 8.2 Discharge Location: Home Disposition: Home self-care Condition: Stable Discharge Activity: Partial-Weight bearing Discharge Diet: General/regular food Referrals: Michael Moyer DO [Staff Physician] - Two Weeks Prescriptions (Any new or edited meds): Aspirin 325 mg PO DAILY #30 tab Enoxaparin Sodium [Lovenox] 40 mg SC Q24H #14 disp.syrin HYDROcodone/ACETAMINOPHEN [[place] 5-325] 2 ea PO Q4H PRN #60 tab PRN Reason: Severe Pain (Pain Scale 7-10) Complete Home Medications List: Complete Home Medication List: Fexofenadine HCl [[place] Allergy] 180 mg PO DAILY 01/30/19 Omeprazole 20 mg PO DAILY 01/30/19 Potassium Chloride [K-Dur] 20 meq PO BID PRN 01/30/19 clonazePAM [Klonopin] 0.5 mg PO BID PRN 01/30/19 traMADol HCL [Ultram] 50 mg PO Q6H PRN 01/30/19 Aspirin 325 mg PO DAILY #30 tab 02/01/19 Enoxaparin Sodium [Lovenox] 40 mg SC Q24H #14 disp.syrin 02/01/19 HYDROcodone/ACETAMINOPHEN [[place] 5-325] 2 ea PO Q4H PRN #60 tab 02/01/19
[2019-02-01 15:19] VITALS: BP 112/64
== END 2019-02-01 15:30 | disposition home or self-care (01) | DRG 470 ==
LOC: ER 10:24 → MS 12:05
PROVIDERS: ADMIT Family Medicine; ATTEND Family Medicine
CPT/HCPCS: 36415; 71010; 71045; 73502; 73700; 80048; 80053; 82607; 84484; 85025; 85027; 85610; 85652; 85730; 86140; 86850; 88305; 88311; 93005; 96374; 97110; 97116; 97161; 97165; 97530; 99284; J2405